=== PATIENT | male | born 1960 | race American Indian/Alaskan Native ===

== ENCOUNTER 2017-11-13 19:17 | Inpatient (IN) | payer MEDICAID ==
[~2017-11-13] VITALS: Ht 190.5 cm; Wt 188.6 kg
[~2017-11-13 19:17] MED LIST: ASPI-10 PO; CARV6.253 PO; FLO0.4C PO; FURO40TA4 PO; HYDR26CR RC; LACT10SO67 PO; LACT1CAP26 PO; MORP30TA60 PO; MUPI15CR12 TOP; NITR0.4T51 SL; PANT40TA4 PO; PER5325T PO; POTA10TA15 PO; RIFA550T PO; SUCR1TAB PO
[2017-11-13 19:58] LABS: BASOPHILS % (AUTO) 0.4 % (0-1); EOSINOPHILS # (AUTO) 0.3 X10'3 (0-0.9); EOSINOPHILS % (AUTO) 3.1 % (0-6); HEMATOCRIT 27.7 % (42.0-52.0); HEMOGLOBIN 9.2 g/dl (14.0-17.9); LYMPHOCYTES # (AUTO) 1.1 X10'3 (1.1-4.8); LYMPHOCYTES % (AUTO) 12.7 % (21-51); MEAN CORPUSCULAR HEMOGLOBIN 35.2 PG (27.0-31.0); MEAN CORPUSCULAR HGB CONC 33.3 % (33.0-36.5); MEAN CORPUSCULAR VOLUME 105.7 FL (78-98); MEAN PLATELET VOLUME 8.6 FL (7.4-10.4); MONOCYTES # (AUTO) 1.1 X10'3 (0-0.9); NEUTROPHILS # (AUTO) 5.9 X10'3 (1.8-7.7); NEUTROPHILS % (AUTO) 70.8 % (42-75); PLATELET COUNT 125 X10'3 (140-440); RED BLOOD COUNT 2.62 X10'6 (4.70-6.10); RED CELL DISTRIBUTION WIDTH 21.5 % (11.5-14.5); WHITE BLOOD COUNT 8.4 X10'3 (4.5-11.0)
[2017-11-13 20:05] LABS: INR 1.5 INR; PARTIAL THROMBOPLASTIN TIME 28 SECONDS (22-32); PROTHROMBIN TIME 15.2 SECONDS (9.0-12.0)
[2017-11-13 20:20] LABS: ACETAMINOPHEN < 2.0 UG/ML (10-30); ALANINE AMINOTRANSFERASE 21 U/L (12-78); ALBUMIN/GLOBULIN RATIO 0.4 (1.1-1.5); ALKALINE PHOSPHATASE 184 IU/L (46-116); ANION GAP 4 (8-16); ASPARTATE AMINO TRANSFERASE 59 U/L (10-37); BLOOD UREA NITROGEN 14 MG/DL (7-18); BUN/CREATININE RATIO 12.3 (5.4-32.0); CALCIUM 7.9 MG/DL (8.5-10.1); CHLORIDE 94 MMOL/L (99-107); CREATINE KINASE 108 U/L (39-308); CREATINE KINASE MB < 0.5 ng/ml (0.3-3.6); CREATININE 1.14 MG/DL (0.60-1.10); ETHANOL < 0.010 GM/DL (0.0-0.010); GLUCOSE 121 MG/DL (70-104); MAGNESIUM 1.8 MG/DL (1.5-2.4); MYOGLOBIN 211 ng/ml (16-96); PHOSPHORUS 1.8 MG/DL (2.3-4.5); SODIUM 135 MMOL/L (135-145); TOTAL CARBON DIOXIDE 36.7 MMOL/L (24-32); TOTAL PROTEIN 7.3 G/DL (6.4-8.2); eGFR 67 ML/MIN
[2017-11-13 20:24] LABS: POTASSIUM 2.1 MMOL/L (3.5-5.1)
[2017-11-13 20:32] LABS: LACTIC SEPSIS 5.8 MMOL/L (0.4-2.0)
[2017-11-13] MEDS ORDERED: vancomycin/NS 1 GM ADD-VANTAGE 250 ML IV ONE (20:40)
[2017-11-13] MEDS ORDERED: heparin 10,000 units/1 ML INJ IV ONE ×2 (20:40→20:50)
[2017-11-13] MEDS ORDERED: aspirin 81mg tab.chew PO ONE (20:40)
[2017-11-13] MEDS ORDERED: piperacillin/tazo 3.375gm/50ml 50 ML IV ONE (20:40)
[2017-11-13] MEDS ORDERED: potassium Cl 20 mEq SR tablet PO ONE (20:40)
[2017-11-13] MEDS ORDERED: normal saline 1000ML IV soln IV ONE (20:40)
[2017-11-13] MEDS ORDERED: temazepam 15mg capsule PO PRN (21:00)
[2017-11-13] MEDS: potassium 10mEq/100ml NS w/LIDOcaine (10mg/bag) IV SCH ×2 (21:29→23:24)
[2017-11-13] MEDS: magnesium 2GM in 50ml NS 50 ML IV ONE ×2 (21:29→22:24)
[2017-11-13] MEDS ORDERED: potassium Cl 20 mEq SR tablet PO PRN (21:35)
[2017-11-13] MEDS ORDERED: diphenhydrAMINE 25mg capsule PO PRN (21:35)
[2017-11-13] MEDS ORDERED: ondansetron/PF 4mg/2ml inj IV PRN (21:35)
[2017-11-13] MEDS ORDERED: acetaminophen 650mg rectal suppository RC PRN (21:35)
[2017-11-13] MEDS ORDERED: potassium Cl 40MEQ/NS 500ml 500 ML IV PRN ×2 (21:35)
[2017-11-13] MEDS ORDERED: metoclopramide 5 mg/ml inj IV PRN (21:35)
[2017-11-13] MEDS ORDERED: HYDROcodone/acetaminophen 5mg/325mg tablet PO PRN (21:35)
[2017-11-13] MEDS ORDERED: HYDROcodone/acetaminophen 10/325mg tab PO PRN (21:35)
[2017-11-13] MEDS ORDERED: morphine sulfate 8 MG/ML SYRINGE IV PRN ×2 (21:35)
[2017-11-13] MEDS ORDERED: mag hydrox/Alum hydrox/simeth 30ml oral suspension PO PRN (21:35)
[2017-11-13] MEDS ORDERED: magnesium hydroxide 30ml (MOM) UD suspension PO PRN (21:35)
[2017-11-13] MEDS ORDERED: HYDROmorphone 1 mg/ml syringe IV PRN ×2 (21:35)
[2017-11-13] MEDS ORDERED: acetaminophen 325mg tablet PO PRN ×2 (21:35)
[2017-11-13] MEDS ORDERED: diphenhydrAMINE 50 mg/ml inj IV PRN (21:35)
[2017-11-13] MEDS: rifaximin 550mg tablet PO SCH (22:00)
[2017-11-13 22:16] LABS: LIPASE 167 U/L (73-393)
[2017-11-13 22:45] LABS: CLARITY,URINE CLOUDY (Clear); COLOR,URINE YELLOW (Yellow); GLUCOSE, URINE NEGATIVE (Neg); KETONES,URINE NEGATIVE (Neg); LEUKOCYTE ESTERASE ,URINE NEGATIVE (Neg); NITRITES, URINE NEGATIVE (Neg); OCCULT BLOOD,URINE TRACE-INTACT (Neg); PROTEIN,URINE NEGATIVE (Neg); UROBILINOGEN,URINE 0.2 E.U/dL (0.2-1.0)
[2017-11-13 22:56] LABS: URINE AMPHETAMINE SCREEN NEGATIVE (Neg); URINE BARBITUATE SCREEN NEGATIVE (Neg); URINE BENZODIAZEPINES SCREEN NEGATIVE (Neg); URINE CANNABINOID SCREEN NEGATIVE (Neg); URINE COCAINE SCREEN NEGATIVE (Neg); URINE METHADONE SCREEN NEGATIVE (Neg); URINE OPIATE SCREEN POSITIVE (Neg); URINE PHENCYCLIDINE SCREEN NEGATIVE (Neg)
[2017-11-13 23:01] LABS: UA COLLECTION TYPE FOLEY CATH
[2017-11-13 23:03] LABS: BACTERIA,URINE NONE SEEN /HPF (Neg); MUCUS STRANDS FEW /LPF (Neg); SQUAMOUS EPITHELIAL CELL,UR FEW /LPF (FEW); WBC,URINE NONE SEEN /HPF (0-4)
[2017-11-13 23:15] VITALS: BP 114/52
[2017-11-13] MEDS: furosemide 10 MG/1 ML 10ml inj IV SCH (23:25)
[2017-11-13] MEDS: tamsulosin 0.4mg capsule PO SCH (23:25)
[2017-11-13] MEDS: carvedilol 6.25mg tablet PO SCH (23:25)
[2017-11-13] MEDS: pantoprazole 40mg Tablet.DR PO SCH (23:26)
[2017-11-13] MEDS: morphine ER 30mg tablet PO SCH (23:26)
[2017-11-14 02:41] LABS: ALANINE AMINOTRANSFERASE 20 U/L (12-78); ALBUMIN 1.8 G/DL (3.4-5.0); ALBUMIN/GLOBULIN RATIO 0.4 (1.1-1.5); ALKALINE PHOSPHATASE 158 IU/L (46-116); ANION GAP 3 (8-16); ASPARTATE AMINO TRANSFERASE 55 U/L (10-37); BILIRUBIN,TOTAL 6.9 MG/DL (0.1-1.0); BLOOD UREA NITROGEN 13 MG/DL (7-18); BUN/CREATININE RATIO 13.8 (5.4-32.0); CALCIUM 7.6 MG/DL (8.5-10.1); CHLORIDE 96 MMOL/L (99-107); CREATININE 0.94 MG/DL (0.60-1.10); GLUCOSE 126 MG/DL (70-104); SODIUM 138 MMOL/L (135-145); TOTAL CARBON DIOXIDE 39.3 MMOL/L (24-32); TOTAL PROTEIN 6.6 G/DL (6.4-8.2); eGFR 84 ML/MIN
[2017-11-14 02:42] LABS: POTASSIUM 2.1 MMOL/L (3.5-5.1)
[2017-11-14 02:53] LABS: BASOPHILS % (AUTO) 0.2 % (0-1); EOSINOPHILS # (AUTO) 0.2 X10'3 (0-0.9); HEMATOCRIT 25.2 % (42.0-52.0); HEMOGLOBIN 8.6 g/dl (14.0-17.9); LYMPHOCYTES % (AUTO) 12.4 % (21-51); MEAN CORPUSCULAR HGB CONC 34.3 % (33.0-36.5); MEAN CORPUSCULAR VOLUME 104.8 FL (78-98); MEAN PLATELET VOLUME 9.3 FL (7.4-10.4); MONOCYTES # (AUTO) 0.8 X10'3 (0-0.9); MONOCYTES % (AUTO) 10.7 % (2-12); NEUTROPHILS # (AUTO) 5.8 X10'3 (1.8-7.7); NEUTROPHILS % (AUTO) 74.7 % (42-75); PLATELET COUNT 108 X10'3 (140-440); RED CELL DISTRIBUTION WIDTH 21.5 % (11.5-14.5); WHITE BLOOD COUNT 7.8 X10'3 (4.5-11.0)
[2017-11-14 03:00] VITALS: BP 112/49
[2017-11-14] MEDS: potassium Cl 20 mEq SR tablet PO PRN ×5 (03:13→23:44)
[2017-11-14] MEDS: sucralfate 1 gm tablet PO SCH ×3 (07:00→17:00)
[2017-11-14] MEDS: lisinopril 5mg tablet PO SCH ×2 (08:00→10:58)
[2017-11-14] MEDS: metoprolol tartrate 25mg tablet PO SCH ×2 (08:00→10:58)
[2017-11-14] MEDS: K and/or MAG REPLACEMENT MC SCH (08:00)
[2017-11-14] MEDS ORDERED: lactulose 20gm/30ml cup PO SCH (08:00)
[2017-11-14] MEDS ORDERED: aspirin 325mg tablet PO SCH (08:30)
[2017-11-14] MEDS ORDERED: heparin 10,000 units/1 ML INJ IV ONE (08:35)
[2017-11-14 09:22] LABS: BASOPHILS % (AUTO) 0.3 % (0-1); EOSINOPHILS # (AUTO) 0.3 X10'3 (0-0.9); EOSINOPHILS % (AUTO) 3.3 % (0-6); HEMATOCRIT 26.3 % (42.0-52.0); HEMOGLOBIN 8.9 g/dl (14.0-17.9); LYMPHOCYTES # (AUTO) 1.1 X10'3 (1.1-4.8); LYMPHOCYTES % (AUTO) 13.6 % (21-51); MEAN CORPUSCULAR HEMOGLOBIN 35.4 PG (27.0-31.0); MEAN CORPUSCULAR HGB CONC 33.9 % (33.0-36.5); MEAN CORPUSCULAR VOLUME 104.6 FL (78-98); MEAN PLATELET VOLUME 8.3 FL (7.4-10.4); NEUTROPHILS # (AUTO) 5.8 X10'3 (1.8-7.7); NEUTROPHILS % (AUTO) 70.8 % (42-75); PLATELET COUNT 119 X10'3 (140-440); RED BLOOD COUNT 2.51 X10'6 (4.70-6.10); RED CELL DISTRIBUTION WIDTH 21.4 % (11.5-14.5); WHITE BLOOD COUNT 8.2 X10'3 (4.5-11.0)
[2017-11-14 09:26] LABS: INR 1.5 INR; PARTIAL THROMBOPLASTIN TIME 31 SECONDS (22-32); PROTHROMBIN TIME 15.7 SECONDS (9.0-12.0)
[2017-11-14] MEDS: lactulose 20gm/30ml cup PO SCH ×3 (10:57→19:26)
[2017-11-14] MEDS: pantoprazole 40mg Tablet.DR PO SCH ×2 (10:58→19:27)
[2017-11-14] MEDS: atorvastatin 10mg tablet PO SCH (10:58)
[2017-11-14] MEDS: rifaximin 550mg tablet PO SCH ×2 (10:58→19:27)
[2017-11-14] MEDS: docusate sod 100mg capsule PO SCH ×2 (10:58→19:27)
[2017-11-14] MEDS: carvedilol 6.25mg tablet PO SCH ×2 (10:59→19:27)
[2017-11-14] MEDS: morphine ER 30mg tablet PO SCH ×2 (10:59→19:27)
[2017-11-14 11:00] VITALS: BP_SYST 104; BP_SYST 126; BP_DIAS 48; BP_DIAS 66
[2017-11-14] MEDS: furosemide 10 MG/1 ML 10ml inj IV SCH (11:00)
[2017-11-14] MEDS ORDERED: chlorhexidine gluc 0.4% **topical ** 120ml btl. TP ONE (14:05)
[2017-11-14] MEDS ORDERED: silver sulfadiazine cream 400gm jar TP SCH (14:05)
[2017-11-14 18:45] LABS: TROPONIN I 8.52 NG/ML (0.0-0.05)
[2017-11-14 19:00] VITALS: BP 127/58
[2017-11-14 19:06] LABS: POTASSIUM 2.6 MMOL/L (3.5-5.1)
[2017-11-14] MEDS: heparin 10,000 units/1 ML INJ IV PRN (19:38)
[2017-11-14] MEDS ORDERED: nitroGLYCERIN 0.2mg/hour patch TD SCH (20:00)
[2017-11-14 23:00] VITALS: BP 123/58
[2017-11-14] MEDS: tamsulosin 0.4mg capsule PO SCH (23:44)
[2017-11-15] VITALS (7 sets, daily range): BP systolic 94–130; BP diastolic 40–60
[2017-11-15 02:12] LABS: BASOPHILS % (AUTO) 0.2 % (0-1); EOSINOPHILS # (AUTO) 0.3 X10'3 (0-0.9); EOSINOPHILS % (AUTO) 2.9 % (0-6); HEMATOCRIT 25.6 % (42.0-52.0); HEMOGLOBIN 8.6 g/dl (14.0-17.9); LYMPHOCYTES # (AUTO) 1.4 X10'3 (1.1-4.8); LYMPHOCYTES % (AUTO) 12.7 % (21-51); MEAN CORPUSCULAR HEMOGLOBIN 35.4 PG (27.0-31.0); MEAN CORPUSCULAR HGB CONC 33.5 % (33.0-36.5); MEAN CORPUSCULAR VOLUME 105.7 FL (78-98); MEAN PLATELET VOLUME 8.2 FL (7.4-10.4); MONOCYTES # (AUTO) 1.3 X10'3 (0-0.9); NEUTROPHILS % (AUTO) 72.2 % (42-75); PLATELET COUNT 128 X10'3 (140-440); RED BLOOD COUNT 2.42 X10'6 (4.70-6.10); RED CELL DISTRIBUTION WIDTH 21.4 % (11.5-14.5); WHITE BLOOD COUNT 11.1 X10'3 (4.5-11.0)
[2017-11-15] MEDS: lactulose 20gm/30ml cup PO SCH ×4 (02:15→19:37)
[2017-11-15 02:24] LABS: ALANINE AMINOTRANSFERASE 15 U/L (12-78); ALBUMIN 1.6 G/DL (3.4-5.0); ALBUMIN/GLOBULIN RATIO 0.3 (1.1-1.5); ALKALINE PHOSPHATASE 160 IU/L (46-116); ANION GAP 3 (8-16); ASPARTATE AMINO TRANSFERASE 78 U/L (10-37); BILIRUBIN,TOTAL 6.8 MG/DL (0.1-1.0); BLOOD UREA NITROGEN 19 MG/DL (7-18); BUN/CREATININE RATIO 13.1 (5.4-32.0); CALCIUM 7.4 MG/DL (8.5-10.1); CHLORIDE 97 MMOL/L (99-107); CREATININE 1.45 MG/DL (0.60-1.10); GLUCOSE 143 MG/DL (70-104); SODIUM 137 MMOL/L (135-145); TOTAL CARBON DIOXIDE 36.6 MMOL/L (24-32); TOTAL PROTEIN 6.5 G/DL (6.4-8.2); eGFR 51 ML/MIN
[2017-11-15 02:26] LABS: POTASSIUM 2.7 MMOL/L (3.5-5.1)
[2017-11-15] MEDS: heparin 10,000 units/1 ML INJ IV PRN ×3 (02:52→17:55)
[2017-11-15] MEDS: potassium Cl 20 mEq SR tablet PO PRN ×3 (03:49→14:20)
[2017-11-15] MEDS: lisinopril 5mg tablet PO SCH (07:33)
[2017-11-15] MEDS: morphine ER 30mg tablet PO SCH ×2 (07:33→19:36)
[2017-11-15] MEDS: rifaximin 550mg tablet PO SCH ×2 (07:33→20:41)
[2017-11-15] MEDS: pantoprazole 40mg Tablet.DR PO SCH ×2 (07:33→19:36)
[2017-11-15] MEDS: sucralfate 1 gm tablet PO SCH ×3 (07:33→17:09)
[2017-11-15] MEDS: docusate sod 100mg capsule PO SCH ×2 (07:33→19:36)
[2017-11-15] MEDS: atorvastatin 10mg tablet PO SCH (07:33)
[2017-11-15] MEDS: carvedilol 6.25mg tablet PO SCH ×2 (07:33→19:37)
[2017-11-15] MEDS: furosemide 10 MG/1 ML 10ml inj IV SCH (07:34)
[2017-11-15] MEDS: K and/or MAG REPLACEMENT MC SCH (07:45)
[2017-11-15] MEDS: silver sulfadiazine cream 50gm TP SCH (10:28)
[2017-11-15] MEDS: lactobacillus rhamnosus 10,000 MMU CELLS/CAPSULE PO SCH (17:09)
[2017-11-15 17:44] LABS: TROPONIN I 3.72 NG/ML (0.0-0.05)
[2017-11-15 19:24] LABS: POTASSIUM 3.3 MMOL/L (3.5-5.1)
[2017-11-15] MEDS: nitroGLYCERIN 0.2mg/hour patch TD SCH (20:00)
[2017-11-15] MEDS: tamsulosin 0.4mg capsule PO SCH (20:41)
[2017-11-16 03:00] VITALS: BP 108/46
[2017-11-16] MEDS: lactulose 20gm/30ml cup PO SCH ×4 (03:43→21:34)
[2017-11-16 05:47] LABS: BASOPHILS % (AUTO) 0.3 % (0-1); EOSINOPHILS # (AUTO) 0.4 X10'3 (0-0.9); EOSINOPHILS % (AUTO) 4.5 % (0-6); HEMATOCRIT 26.7 % (42.0-52.0); HEMOGLOBIN 8.9 g/dl (14.0-17.9); LYMPHOCYTES # (AUTO) 1.4 X10'3 (1.1-4.8); LYMPHOCYTES % (AUTO) 15.2 % (21-51); MEAN CORPUSCULAR HEMOGLOBIN 35.3 PG (27.0-31.0); MEAN CORPUSCULAR HGB CONC 33.3 % (33.0-36.5); MEAN PLATELET VOLUME 8.4 FL (7.4-10.4); MONOCYTES # (AUTO) 1.1 X10'3 (0-0.9); MONOCYTES % (AUTO) 11.5 % (2-12); NEUTROPHILS # (AUTO) 6.3 X10'3 (1.8-7.7); NEUTROPHILS % (AUTO) 68.5 % (42-75); PLATELET COUNT 129 X10'3 (140-440); RED BLOOD COUNT 2.52 X10'6 (4.70-6.10); RED CELL DISTRIBUTION WIDTH 22.6 % (11.5-14.5); WHITE BLOOD COUNT 9.2 X10'3 (4.5-11.0)
[2017-11-16 06:00] VITALS: BP 97/32
[2017-11-16 06:19] LABS: ALANINE AMINOTRANSFERASE 21 U/L (12-78); ALBUMIN 1.8 G/DL (3.4-5.0); ALBUMIN/GLOBULIN RATIO 0.4 (1.1-1.5); ALKALINE PHOSPHATASE 163 IU/L (46-116); ANION GAP 5 (8-16); ASPARTATE AMINO TRANSFERASE 78 U/L (10-37); BILIRUBIN,TOTAL 7.5 MG/DL (0.1-1.0); BLOOD UREA NITROGEN 21 MG/DL (7-18); BUN/CREATININE RATIO 18.6 (5.4-32.0); CALCIUM 7.9 MG/DL (8.5-10.1); CHLORIDE 95 MMOL/L (99-107); CREATININE 1.13 MG/DL (0.60-1.10); GLUCOSE 130 MG/DL (70-104); POTASSIUM 3.1 MMOL/L (3.5-5.1); SODIUM 136 MMOL/L (135-145); TOTAL CARBON DIOXIDE 36.2 MMOL/L (24-32); TOTAL PROTEIN 6.9 G/DL (6.4-8.2); eGFR 68 ML/MIN
[2017-11-16] MEDS: sucralfate 1 gm tablet PO SCH ×3 (06:35→17:07)
[2017-11-16] MEDS: lactobacillus rhamnosus 10,000 MMU CELLS/CAPSULE PO SCH ×2 (06:35→17:07)
[2017-11-16 06:56] LABS: TROPONIN I 2.45 NG/ML (0.0-0.05)
[2017-11-16] MEDS: silver sulfadiazine cream 50gm TP SCH (08:41)
[2017-11-16] MEDS: potassium Cl 20 mEq SR tablet PO PRN (08:41)
[2017-11-16] MEDS: rifaximin 550mg tablet PO SCH ×2 (08:41→21:37)
[2017-11-16] MEDS: pantoprazole 40mg Tablet.DR PO SCH ×2 (08:42→21:36)
[2017-11-16] MEDS: atorvastatin 10mg tablet PO SCH (08:42)
[2017-11-16] MEDS: lisinopril 5mg tablet PO SCH (08:42)
[2017-11-16] MEDS: morphine ER 30mg tablet PO SCH ×2 (08:43→21:36)
[2017-11-16] MEDS: docusate sod 100mg capsule PO SCH ×2 (08:43→20:00)
[2017-11-16] MEDS: carvedilol 6.25mg tablet PO SCH (08:43)
[2017-11-16] MEDS: furosemide 10 MG/1 ML 10ml inj IV SCH ×2 (08:44→16:49)
[2017-11-16] MEDS: K and/or MAG REPLACEMENT MC SCH (08:57)
[2017-11-16] MEDS ORDERED: insulin Lispro (HumaLOG) vial - multi-dose SQ SCH (09:45)
[2017-11-16] MEDS ORDERED: glucagon, human recombinant 1mg kit SUBCUT PRN (09:45)
[2017-11-16] MEDS ORDERED: dextrose ORAL solution 15 GM/59 ML bottle PO PRN ×2 (09:45)
[2017-11-16] MEDS ORDERED: dextrose 50%-water 50ml dispensing syringe IV PRN ×2 (09:45)
[2017-11-16] MEDS ORDERED: MESSAGE TO PHARMACY PO ONE (09:45)
[2017-11-16 11:00] VITALS: BP 102/45
[2017-11-16] MEDS: aspirin 325mg tablet, delayed-release (Ecotrin) PO SCH (12:21)
[2017-11-16] MEDS: potassium Cl 20 mEq SR tablet PO SCH ×2 (12:21→17:07)
[2017-11-16 15:00] VITALS: BP 105/46
[2017-11-16 19:00] VITALS: BP 117/51
[2017-11-16] MEDS: carVEDilol 3.125mg tablet PO SCH (20:00)
[2017-11-16] MEDS: nitroGLYCERIN 0.2mg/hour patch TD SCH (20:00)
[2017-11-16] MEDS ORDERED: Insulin Detemir pen SQ SCH (21:00)
[2017-11-16] MEDS: docusate sod 250mg capsule PO SCH (21:36)
[2017-11-16] MEDS: tamsulosin 0.4mg capsule PO SCH (21:37)
[2017-11-16] MEDS: heparin, porcine 5000 units/ml vial SQ SCH (21:42)
[2017-11-16 23:00] VITALS: BP 115/58
[2017-11-17] MEDS: furosemide 10 MG/1 ML 10ml inj IV SCH ×4 (00:33→23:38)
[2017-11-17] MEDS: lactulose 20gm/30ml cup PO SCH ×4 (02:00→20:25)
[2017-11-17 03:00] VITALS: BP 120/52
[2017-11-17 06:00] VITALS: BP 120/53
[2017-11-17] MEDS: K and/or MAG REPLACEMENT MC SCH (08:00)
[2017-11-17 08:14] LABS: ALBUMIN 1.9 G/DL (3.4-5.0); ANION GAP 4 (8-16); BLOOD UREA NITROGEN 19 MG/DL (7-18); BUN/CREATININE RATIO 17.9 (5.4-32.0); CALCIUM 7.8 MG/DL (8.5-10.1); CHLORIDE 95 MMOL/L (99-107); CREATININE 1.06 MG/DL (0.60-1.10); GLUCOSE 117 MG/DL (70-104); POTASSIUM 3.8 MMOL/L (3.5-5.1); SODIUM 133 MMOL/L (135-145); TOTAL CARBON DIOXIDE 34.3 MMOL/L (24-32); eGFR 73 ML/MIN
[2017-11-17] MEDS: morphine ER 30mg tablet PO SCH ×2 (09:59→20:26)
[2017-11-17] MEDS: carVEDilol 3.125mg tablet PO SCH ×2 (10:07→20:26)
[2017-11-17] MEDS: docusate sod 100mg capsule PO SCH ×2 (10:07→20:26)
[2017-11-17] MEDS: sucralfate 1 gm tablet PO SCH ×3 (10:07→17:46)
[2017-11-17] MEDS: rifaximin 550mg tablet PO SCH ×2 (10:07→20:29)
[2017-11-17] MEDS: potassium Cl 20 mEq SR tablet PO SCH ×2 (10:07→17:46)
[2017-11-17] MEDS: atorvastatin 10mg tablet PO SCH (10:07)
[2017-11-17] MEDS: lactobacillus rhamnosus 10,000 MMU CELLS/CAPSULE PO SCH ×2 (10:07→17:46)
[2017-11-17] MEDS: pantoprazole 40mg Tablet.DR PO SCH ×2 (10:07→20:26)
[2017-11-17] MEDS: aspirin 325mg tablet, delayed-release (Ecotrin) PO SCH (10:07)
[2017-11-17] MEDS: silver sulfadiazine cream 50gm TP SCH (10:08)
[2017-11-17] MEDS: heparin, porcine 5000 units/ml vial SQ SCH ×2 (10:08→20:26)
[2017-11-17 11:00] VITALS: BP 135/48
[2017-11-17 15:00] VITALS: BP 142/46
[2017-11-17 19:00] VITALS: BP 151/54
[2017-11-17] MEDS: nitroGLYCERIN 0.2mg/hour patch TD SCH (20:00)
[2017-11-17] MEDS: tamsulosin 0.4mg capsule PO SCH (20:26)
[2017-11-17] MEDS: docusate sod 250mg capsule PO SCH (20:26)
[2017-11-17 23:00] VITALS: BP 142/59
[2017-11-17 23:15] LABS: OCCULT BLOOD STOOL POSITIVE (Neg)
[2017-11-18] VITALS (7 sets, daily range): BP systolic 103–152; BP diastolic 30–67
[2017-11-18] MEDS: lactulose 20gm/30ml cup PO SCH ×4 (02:35→20:40)
[2017-11-18 03:42] LABS: BASOPHILS % (AUTO) 0.3 % (0-1); EOSINOPHILS # (AUTO) 0.4 X10'3 (0-0.9); EOSINOPHILS % (AUTO) 4.7 % (0-6); HEMATOCRIT 24.3 % (42.0-52.0); HEMOGLOBIN 8.3 g/dl (14.0-17.9); LYMPHOCYTES # (AUTO) 1.4 X10'3 (1.1-4.8); LYMPHOCYTES % (AUTO) 17.4 % (21-51); MEAN CORPUSCULAR HEMOGLOBIN 35.9 PG (27.0-31.0); MEAN CORPUSCULAR VOLUME 105.6 FL (78-98); MONOCYTES # (AUTO) 1.1 X10'3 (0-0.9); MONOCYTES % (AUTO) 13.7 % (2-12); NEUTROPHILS # (AUTO) 5.3 X10'3 (1.8-7.7); NEUTROPHILS % (AUTO) 63.9 % (42-75); PLATELET COUNT 147 X10'3 (140-440); RED CELL DISTRIBUTION WIDTH 22.9 % (11.5-14.5); WHITE BLOOD COUNT 8.2 X10'3 (4.5-11.0)
[2017-11-18 07:11] LABS: ALANINE AMINOTRANSFERASE 29 U/L (12-78); ALBUMIN 1.8 G/DL (3.4-5.0); ALKALINE PHOSPHATASE 177 IU/L (46-116); ANION GAP 5 (8-16); ASPARTATE AMINO TRANSFERASE 100 U/L (10-37); BILIRUBIN,TOTAL 7.3 MG/DL (0.1-1.0); BLOOD UREA NITROGEN 18 MG/DL (7-18); BUN/CREATININE RATIO 18.2 (5.4-32.0); CALCIUM 8.1 MG/DL (8.5-10.1); CHLORIDE 98 MMOL/L (99-107); CREATININE 0.99 MG/DL (0.60-1.10); GLUCOSE 111 MG/DL (70-104); HDL CHOLESTEROL 19 MG/DL (35-60); LDL CHOLESTEROL 84 MG/DL (50-100); POTASSIUM 4.2 MMOL/L (3.5-5.1); SODIUM 135 MMOL/L (135-145); TOTAL CARBON DIOXIDE 32.5 MMOL/L (24-32); TRIGLYCERIDES 58 MG/DL (20-135); eGFR 79 ML/MIN
[2017-11-18 07:35] LABS: ALBUMIN/GLOBULIN RATIO 0.4 (1.1-1.5); CHOL/HDL RATIO 5.4 (0.00-4.99); CHOLESTEROL 102 MG/DL (0-200); TOTAL PROTEIN 6.8 G/DL (6.4-8.2)
[2017-11-18] MEDS: nitroGLYCERIN 0.4mg SUBLingual tab SL PRN (07:58)
[2017-11-18] MEDS: docusate sod 100mg capsule PO SCH (08:00)
[2017-11-18] MEDS: K and/or MAG REPLACEMENT MC SCH (08:00)
[2017-11-18] MEDS: atorvastatin 10mg tablet PO SCH (08:17)
[2017-11-18] MEDS: morphine ER 30mg tablet PO SCH ×2 (08:17→20:39)
[2017-11-18] MEDS: rifaximin 550mg tablet PO SCH ×2 (08:17→20:39)
[2017-11-18] MEDS: aspirin 325mg tablet, delayed-release (Ecotrin) PO SCH (08:18)
[2017-11-18] MEDS: pantoprazole 40mg Tablet.DR PO SCH (08:18)
[2017-11-18] MEDS: carVEDilol 3.125mg tablet PO SCH ×2 (08:18→20:39)
[2017-11-18] MEDS: potassium Cl 20 mEq SR tablet PO SCH ×2 (08:18→16:30)
[2017-11-18] MEDS: sucralfate 1 gm tablet PO SCH ×3 (08:18→16:01)
[2017-11-18] MEDS: lactobacillus rhamnosus 10,000 MMU CELLS/CAPSULE PO SCH ×2 (08:18→16:01)
[2017-11-18] MEDS: furosemide 10 MG/1 ML 10ml inj IV SCH ×3 (08:19→23:29)
[2017-11-18] MEDS: silver sulfadiazine cream 50gm TP SCH (08:24)
[2017-11-18] MEDS: heparin, porcine 5000 units/ml vial SQ SCH ×2 (11:58→20:40)
[2017-11-18] MEDS: pantoprazole 40MG/NS 100ML BAG 100 ML IV SCH ×2 (16:02→20:40)
[2017-11-18] MEDS: nitroGLYCERIN 0.2mg/hour patch TD SCH (20:00)
[2017-11-18] MEDS: tamsulosin 0.4mg capsule PO SCH (20:39)
[2017-11-18] MEDS: docusate sod 250mg capsule PO SCH (20:39)
[2017-11-19] MEDS: pantoprazole 40MG/NS 100ML BAG 100 ML IV SCH ×5 (02:19→22:14)
[2017-11-19] MEDS: lactulose 20gm/30ml cup PO SCH ×4 (02:19→20:24)
[2017-11-19 03:00] VITALS: BP 124/48
[2017-11-19 05:19] LABS: BASOPHILS % (AUTO) 0.3 % (0-1); EOSINOPHILS # (AUTO) 0.4 X10'3 (0-0.9); HEMATOCRIT 24.3 % (42.0-52.0); HEMOGLOBIN 8.1 g/dl (14.0-17.9); LYMPHOCYTES # (AUTO) 1.9 X10'3 (1.1-4.8); LYMPHOCYTES % (AUTO) 17.9 % (21-51); MEAN CORPUSCULAR HEMOGLOBIN 35.7 PG (27.0-31.0); MEAN CORPUSCULAR HGB CONC 33.5 % (33.0-36.5); MEAN CORPUSCULAR VOLUME 106.4 FL (78-98); MEAN PLATELET VOLUME 7.9 FL (7.4-10.4); MONOCYTES # (AUTO) 1.5 X10'3 (0-0.9); MONOCYTES % (AUTO) 14.5 % (2-12); NEUTROPHILS # (AUTO) 6.6 X10'3 (1.8-7.7); NEUTROPHILS % (AUTO) 63.3 % (42-75); PLATELET COUNT 126 X10'3 (140-440); RED BLOOD COUNT 2.28 X10'6 (4.70-6.10); RED CELL DISTRIBUTION WIDTH 22.5 % (11.5-14.5); WHITE BLOOD COUNT 10.4 X10'3 (4.5-11.0)
[2017-11-19 05:55] LABS: ALANINE AMINOTRANSFERASE 30 U/L (12-78); ALBUMIN 1.7 G/DL (3.4-5.0); ALBUMIN/GLOBULIN RATIO 0.3 (1.1-1.5); ALKALINE PHOSPHATASE 175 IU/L (46-116); ANION GAP 4 (8-16); ASPARTATE AMINO TRANSFERASE 88 U/L (10-37); BILIRUBIN,TOTAL 6.6 MG/DL (0.1-1.0); BLOOD UREA NITROGEN 13 MG/DL (7-18); BUN/CREATININE RATIO 13.4 (5.4-32.0); CALCIUM 7.8 MG/DL (8.5-10.1); CHLORIDE 99 MMOL/L (99-107); CREATININE 0.97 MG/DL (0.60-1.10); GLUCOSE 127 MG/DL (70-104); POTASSIUM 3.7 MMOL/L (3.5-5.1); SODIUM 135 MMOL/L (135-145); TOTAL CARBON DIOXIDE 32.1 MMOL/L (24-32); TOTAL PROTEIN 6.8 G/DL (6.4-8.2); eGFR 81 ML/MIN
[2017-11-19] MEDS: sucralfate 1 gm tablet PO SCH ×3 (07:05→17:02)
[2017-11-19] MEDS: lactobacillus rhamnosus 10,000 MMU CELLS/CAPSULE PO SCH ×2 (07:05→17:02)
[2017-11-19] MEDS: K and/or MAG REPLACEMENT MC SCH (08:00)
[2017-11-19] MEDS: furosemide 10 MG/1 ML 10ml inj IV SCH ×3 (08:24→20:24)
[2017-11-19] MEDS: carVEDilol 3.125mg tablet PO SCH ×2 (08:32→20:26)
[2017-11-19] MEDS: morphine ER 30mg tablet PO SCH ×2 (08:33→20:24)
[2017-11-19] MEDS: aspirin 325mg tablet, delayed-release (Ecotrin) PO SCH (08:33)
[2017-11-19] MEDS: atorvastatin 10mg tablet PO SCH (08:33)
[2017-11-19] MEDS: rifaximin 550mg tablet PO SCH ×2 (08:34→20:25)
[2017-11-19] MEDS: heparin, porcine 5000 units/ml vial SQ SCH ×2 (08:35→20:24)
[2017-11-19] MEDS: potassium Cl 20 mEq SR tablet PO SCH ×3 (08:37→20:25)
[2017-11-19] MEDS: silver sulfadiazine cream 50gm TP SCH (08:37)
[2017-11-19] MEDS: nitroGLYCERIN 0.4mg SUBLingual tab SL PRN ×3 (09:00→18:50)
[2017-11-19 11:00] VITALS: BP 103/39
[2017-11-19 14:05] VITALS: BP 122/40
[2017-11-19 15:00] VITALS: BP 127/49
[2017-11-19 19:00] VITALS: BP 117/50
[2017-11-19] MEDS: nitroGLYCERIN 0.2mg/hour patch TD SCH (20:00)
[2017-11-19] MEDS: tamsulosin 0.4mg capsule PO SCH (20:25)
[2017-11-19] MEDS: docusate sod 250mg capsule PO SCH (20:25)
[2017-11-19 23:00] VITALS: BP 116/56
[2017-11-20] VITALS (8 sets, daily range): BP systolic 102–114; BP diastolic 35–53
[2017-11-20] MEDS: lactulose 20gm/30ml cup PO SCH ×4 (01:33→20:06)
[2017-11-20] MEDS: furosemide 10 MG/1 ML 10ml inj IV SCH ×4 (01:33→20:06)
[2017-11-20] MEDS: pantoprazole 40MG/NS 100ML BAG 100 ML IV SCH ×6 (03:21→23:22)
[2017-11-20] MEDS: nitroGLYCERIN 0.4mg SUBLingual tab SL PRN ×4 (05:21→19:51)
[2017-11-20 05:31] LABS: BASOPHILS # (AUTO) 0.1 X10'3 (0-0.2); BASOPHILS % (AUTO) 0.6 % (0-1); EOSINOPHILS # (AUTO) 0.4 X10'3 (0-0.9); EOSINOPHILS % (AUTO) 4.4 % (0-6); HEMATOCRIT 23.6 % (42.0-52.0); HEMOGLOBIN 7.9 g/dl (14.0-17.9); LYMPHOCYTES # (AUTO) 1.9 X10'3 (1.1-4.8); LYMPHOCYTES % (AUTO) 18.9 % (21-51); MEAN CORPUSCULAR HEMOGLOBIN 35.9 PG (27.0-31.0); MEAN CORPUSCULAR HGB CONC 33.6 % (33.0-36.5); MEAN CORPUSCULAR VOLUME 106.9 FL (78-98); MEAN PLATELET VOLUME 8.3 FL (7.4-10.4); MONOCYTES # (AUTO) 1.2 X10'3 (0-0.9); MONOCYTES % (AUTO) 12.4 % (2-12); NEUTROPHILS # (AUTO) 6.3 X10'3 (1.8-7.7); NEUTROPHILS % (AUTO) 63.7 % (42-75); PLATELET COUNT 134 X10'3 (140-440); RED BLOOD COUNT 2.21 X10'6 (4.70-6.10); RED CELL DISTRIBUTION WIDTH 22.4 % (11.5-14.5); WHITE BLOOD COUNT 9.9 X10'3 (4.5-11.0)
[2017-11-20 06:24] LABS: ALANINE AMINOTRANSFERASE 29 U/L (12-78); ALBUMIN 1.6 G/DL (3.4-5.0); ALBUMIN/GLOBULIN RATIO 0.3 (1.1-1.5); ALKALINE PHOSPHATASE 179 IU/L (46-116); ANION GAP 3 (8-16); ASPARTATE AMINO TRANSFERASE 89 U/L (10-37); BILIRUBIN,TOTAL 5.9 MG/DL (0.1-1.0); BLOOD UREA NITROGEN 12 MG/DL (7-18); BUN/CREATININE RATIO 11.8 (5.4-32.0); CALCIUM 7.9 MG/DL (8.5-10.1); CHLORIDE 99 MMOL/L (99-107); CREATININE 1.02 MG/DL (0.60-1.10); GLUCOSE 154 MG/DL (70-104); POTASSIUM 3.9 MMOL/L (3.5-5.1); SODIUM 132 MMOL/L (135-145); TOTAL CARBON DIOXIDE 29.8 MMOL/L (24-32); TOTAL PROTEIN 6.7 G/DL (6.4-8.2); eGFR 76 ML/MIN
[2017-11-20] MEDS: lactobacillus rhamnosus 10,000 MMU CELLS/CAPSULE PO SCH ×2 (07:10→17:28)
[2017-11-20] MEDS: sucralfate 1 gm tablet PO SCH ×3 (07:10→17:28)
[2017-11-20] MEDS: K and/or MAG REPLACEMENT MC SCH (08:00)
[2017-11-20] MEDS: aspirin 325mg tablet, delayed-release (Ecotrin) PO SCH (08:06)
[2017-11-20] MEDS: carVEDilol 3.125mg tablet PO SCH ×2 (08:06→20:05)
[2017-11-20] MEDS: potassium Cl 20 mEq SR tablet PO SCH ×3 (08:06→20:06)
[2017-11-20] MEDS: atorvastatin 10mg tablet PO SCH (08:07)
[2017-11-20] MEDS: morphine ER 30mg tablet PO SCH ×2 (08:07→20:05)
[2017-11-20] MEDS: heparin, porcine 5000 units/ml vial SQ SCH ×2 (08:08→20:07)
[2017-11-20] MEDS: rifaximin 550mg tablet PO SCH ×2 (08:08→20:05)
[2017-11-20] MEDS: silver sulfadiazine cream 50gm TP SCH (08:09)
[2017-11-20] MEDS ORDERED: oxyCODONE/APAP 5-325mg tablet PO PRN (11:30)
[2017-11-20] MEDS: nitroGLYCERIN 0.4mg/hour patch TD SCH (15:44)
[2017-11-20] MEDS: docusate sod 250mg capsule PO SCH (20:06)
[2017-11-20] MEDS: tamsulosin 0.4mg capsule PO SCH (20:06)
[2017-11-21] VITALS (9 sets, daily range): BP systolic 94–141; BP diastolic 39–64
[2017-11-21] MEDS: nitroGLYCERIN 0.4mg SUBLingual tab SL PRN (02:22)
[2017-11-21] MEDS: furosemide 10 MG/1 ML 10ml inj IV SCH ×2 (02:23→07:30)
[2017-11-21] MEDS: lactulose 20gm/30ml cup PO SCH ×4 (02:24→20:26)
[2017-11-21] MEDS: pantoprazole 40MG/NS 100ML BAG 100 ML IV SCH ×2 (04:29→10:05)
[2017-11-21] MEDS: sucralfate 1 gm tablet PO SCH ×3 (07:18→17:17)
[2017-11-21] MEDS: K and/or MAG REPLACEMENT MC SCH (07:19)
[2017-11-21] MEDS: atorvastatin 10mg tablet PO SCH (07:30)
[2017-11-21] MEDS: morphine ER 30mg tablet PO SCH ×2 (07:31→20:27)
[2017-11-21] MEDS: potassium Cl 20 mEq SR tablet PO SCH ×3 (07:31→20:27)
[2017-11-21] MEDS: rifaximin 550mg tablet PO SCH ×2 (07:31→20:27)
[2017-11-21] MEDS: heparin, porcine 5000 units/ml vial SQ SCH ×2 (07:31→20:25)
[2017-11-21] MEDS: carVEDilol 3.125mg tablet PO SCH ×2 (07:33→20:27)
[2017-11-21] MEDS: lactobacillus rhamnosus 10,000 MMU CELLS/CAPSULE PO SCH ×2 (07:33→17:16)
[2017-11-21] MEDS: aspirin 81mg tablet.DR PO SCH (07:56)
[2017-11-21] MEDS: nitroGLYCERIN 0.4mg/hour patch TD SCH (07:56)
[2017-11-21] MEDS: silver sulfadiazine cream 50gm TP SCH (07:57)
[2017-11-21] MEDS ORDERED: acetaminophen 325mg tablet PO ONE (09:40)
[2017-11-21] MEDS ORDERED: diphenhydrAMINE 25mg capsule PO ONE (09:40)
[2017-11-21] MEDS ORDERED: furosemide 40mg/4ml inj IV ONE (11:40)
[2017-11-21] MEDS: pantoprazole 40 MG vial IV SCH (20:26)
[2017-11-21] MEDS: docusate sod 250mg capsule PO SCH (20:27)
[2017-11-21] MEDS: tamsulosin 0.4mg capsule PO SCH (20:27)
[2017-11-22] VITALS (10 sets, daily range): BP systolic 91–143; BP diastolic 35–71
[2017-11-22] MEDS: lactulose 20gm/30ml cup PO SCH ×2 (03:03→08:00)
[2017-11-22 04:19] LABS: BASOPHILS % (AUTO) 0.4 % (0-1); EOSINOPHILS # (AUTO) 0.4 X10'3 (0-0.9); EOSINOPHILS % (AUTO) 4.9 % (0-6); HEMATOCRIT 22.8 % (42.0-52.0); HEMOGLOBIN 7.7 g/dl (14.0-17.9); LYMPHOCYTES # (AUTO) 1.4 X10'3 (1.1-4.8); LYMPHOCYTES % (AUTO) 15.6 % (21-51); MEAN CORPUSCULAR HEMOGLOBIN 35.3 PG (27.0-31.0); MEAN CORPUSCULAR HGB CONC 33.6 % (33.0-36.5); MEAN CORPUSCULAR VOLUME 105.3 FL (78-98); MEAN PLATELET VOLUME 7.9 FL (7.4-10.4); MONOCYTES # (AUTO) 1.2 X10'3 (0-0.9); MONOCYTES % (AUTO) 13.9 % (2-12); NEUTROPHILS # (AUTO) 5.8 X10'3 (1.8-7.7); NEUTROPHILS % (AUTO) 65.2 % (42-75); PLATELET COUNT 121 X10'3 (140-440); RED BLOOD COUNT 2.17 X10'6 (4.70-6.10); RED CELL DISTRIBUTION WIDTH 26.7 % (11.5-14.5); WHITE BLOOD COUNT 8.9 X10'3 (4.5-11.0)
[2017-11-22 04:45] LABS: ALANINE AMINOTRANSFERASE 39 U/L (12-78); ALBUMIN 1.6 G/DL (3.4-5.0); ALBUMIN/GLOBULIN RATIO 0.3 (1.1-1.5); ALKALINE PHOSPHATASE 225 IU/L (46-116); ANION GAP 4 (8-16); ASPARTATE AMINO TRANSFERASE 89 U/L (10-37); BILIRUBIN,TOTAL 5.2 MG/DL (0.1-1.0); BLOOD UREA NITROGEN 11 MG/DL (7-18); BUN/CREATININE RATIO 11.7 (5.4-32.0); CALCIUM 7.8 MG/DL (8.5-10.1); CHLORIDE 102 MMOL/L (99-107); CREATININE 0.94 MG/DL (0.60-1.10); GLUCOSE 110 MG/DL (70-104); POTASSIUM 4.6 MMOL/L (3.5-5.1); SODIUM 136 MMOL/L (135-145); TOTAL CARBON DIOXIDE 30.3 MMOL/L (24-32); TOTAL PROTEIN 6.7 G/DL (6.4-8.2); eGFR 84 ML/MIN
[2017-11-22 04:59] LABS: POLYCHROMASIA FEW
[2017-11-22 05:00] LABS: ANISOCYTOSIS 3+; MICROCYTOSIS 1+; PLATELET ESTIMATE DECREASED; SCHISTOCYTES FEW
[2017-11-22] MEDS: sucralfate 1 gm tablet PO SCH ×3 (07:44→16:52)
[2017-11-22] MEDS: lactobacillus rhamnosus 10,000 MMU CELLS/CAPSULE PO SCH ×2 (07:44→16:52)
[2017-11-22] MEDS: K and/or MAG REPLACEMENT MC SCH (08:00)
[2017-11-22] MEDS: pantoprazole 40 MG vial IV SCH ×2 (09:25→19:58)
[2017-11-22] MEDS: aspirin 81mg tablet.DR PO SCH (09:26)
[2017-11-22] MEDS: atorvastatin 10mg tablet PO SCH (09:26)
[2017-11-22] MEDS: potassium Cl 20 mEq SR tablet PO SCH ×3 (09:27→20:07)
[2017-11-22] MEDS: carVEDilol 3.125mg tablet PO SCH ×2 (09:27→19:58)
[2017-11-22] MEDS: morphine ER 30mg tablet PO SCH ×2 (09:28→19:58)
[2017-11-22] MEDS: rifaximin 550mg tablet PO SCH ×2 (09:28→19:59)
[2017-11-22] MEDS: nitroGLYCERIN 0.4mg/hour patch TD SCH (09:43)
[2017-11-22] MEDS: silver sulfadiazine cream 50gm TP SCH (09:44)
[2017-11-22 10:37] LABS: BASOPHILS % (AUTO) 0.5 % (0-1); EOSINOPHILS # (AUTO) 0.4 X10'3 (0-0.9); EOSINOPHILS % (AUTO) 4.8 % (0-6); HEMATOCRIT 24.2 % (42.0-52.0); LYMPHOCYTES # (AUTO) 1.3 X10'3 (1.1-4.8); MEAN CORPUSCULAR HEMOGLOBIN 34.9 PG (27.0-31.0); MEAN CORPUSCULAR HGB CONC 33.1 % (33.0-36.5); MEAN CORPUSCULAR VOLUME 105.4 FL (78-98); MEAN PLATELET VOLUME 7.9 FL (7.4-10.4); MONOCYTES # (AUTO) 1.1 X10'3 (0-0.9); MONOCYTES % (AUTO) 12.7 % (2-12); NEUTROPHILS # (AUTO) 5.7 X10'3 (1.8-7.7); PLATELET COUNT 126 X10'3 (140-440); RED CELL DISTRIBUTION WIDTH 26.4 % (11.5-14.5); WHITE BLOOD COUNT 8.5 X10'3 (4.5-11.0)
[2017-11-22] MEDS: docusate sod 250mg capsule PO SCH (20:07)
[2017-11-22] MEDS: tamsulosin 0.4mg capsule PO SCH (20:07)
[2017-11-23 00:31] LABS: HEMATOCRIT 23.9 % (42.0-52.0); MEAN CORPUSCULAR HEMOGLOBIN 34.4 PG (27.0-31.0); MEAN CORPUSCULAR HGB CONC 33.4 % (33.0-36.5); MEAN CORPUSCULAR VOLUME 103.1 FL (78-98); MEAN PLATELET VOLUME 7.6 FL (7.4-10.4); PLATELET COUNT 124 X10'3 (140-440); RED BLOOD COUNT 2.32 X10'6 (4.70-6.10); RED CELL DISTRIBUTION WIDTH 27.9 % (11.5-14.5); WHITE BLOOD COUNT 9.9 X10'3 (4.5-11.0)
[2017-11-23 00:49] LABS: ALANINE AMINOTRANSFERASE 35 U/L (12-78); ALBUMIN 1.6 G/DL (3.4-5.0); ALBUMIN/GLOBULIN RATIO 0.3 (1.1-1.5); ALKALINE PHOSPHATASE 180 IU/L (46-116); ANION GAP 3 (8-16); ASPARTATE AMINO TRANSFERASE 83 U/L (10-37); BILIRUBIN,TOTAL 6.1 MG/DL (0.1-1.0); BLOOD UREA NITROGEN 12 MG/DL (7-18); CALCIUM 7.6 MG/DL (8.5-10.1); CHLORIDE 100 MMOL/L (99-107); GLUCOSE 110 MG/DL (70-104); POTASSIUM 4.8 MMOL/L (3.5-5.1); SODIUM 132 MMOL/L (135-145); TOTAL CARBON DIOXIDE 29.1 MMOL/L (24-32); TOTAL PROTEIN 6.6 G/DL (6.4-8.2); eGFR > 90 ML/MIN
[2017-11-23 03:00] VITALS: BP 104/44
[2017-11-23 06:00] VITALS: BP 101/42
[2017-11-23] MEDS: potassium Cl 20 mEq SR tablet PO SCH ×2 (07:49→12:22)
[2017-11-23] MEDS: rifaximin 550mg tablet PO SCH (07:50)
[2017-11-23] MEDS: atorvastatin 10mg tablet PO SCH (07:50)
[2017-11-23] MEDS: aspirin 81mg tablet.DR PO SCH (07:50)
[2017-11-23] MEDS: lactobacillus rhamnosus 10,000 MMU CELLS/CAPSULE PO SCH (07:50)
[2017-11-23] MEDS: morphine ER 30mg tablet PO SCH (07:50)
[2017-11-23] MEDS: lactulose 20gm/30ml cup PO SCH ×3 (07:50→08:00)
[2017-11-23] MEDS: sucralfate 1 gm tablet PO SCH ×2 (07:50→12:22)
[2017-11-23] MEDS: pantoprazole 40 MG vial IV SCH (07:51)
[2017-11-23] MEDS: K and/or MAG REPLACEMENT MC SCH (08:00)
[2017-11-23] MEDS: silver sulfadiazine cream 50gm TP SCH (08:00)
[2017-11-23] MEDS: nitroGLYCERIN 0.4mg/hour patch TD SCH ×2 (08:00→13:20)
[2017-11-23] MEDS: carVEDilol 3.125mg tablet PO SCH (08:00)
[2017-11-23 11:00] VITALS: BP 118/48
[2017-11-23] MEDS ORDERED: FURO20TA4 PO (11:38)
[2017-11-23] MEDS ORDERED: pantoprazole 40mg Tablet.DR PO SCH (20:00)
== END 2017-11-23 16:00 | disposition home health service (06) | DRG 190 ==
LOC: ER 19:18 → ED HOLD 21:34 → EDBEDREQ 22:02 → PCU 3S 23:00
PROVIDERS: ADMIT Family Medicine; ATTEND Internal Medicine
PROC: 30233N1 Transfusion of Nonautologous Red Blood Cells into Peripheral Vein, Percutaneous Approach (ICD-10-PCS; principal; 2017-11-21)
DX: I21.4 Non-ST elevation (NSTEMI) myocardial infarction (principal); E87.2 Acidosis; D68.4 Acquired coagulation factor deficiency; I13.0 Hypertensive heart and chronic kidney disease with heart failure and stage 1 through stage 4 chronic kidney disease, or unspecified chronic kidney disease; I50.9 Heart failure, unspecified; K26.9 Duodenal ulcer, unspecified as acute or chronic, without hemorrhage or perforation; E11.22 Type 2 diabetes mellitus with diabetic chronic kidney disease; I25.10 Atherosclerotic heart disease of native coronary artery without angina pectoris; E11.42 Type 2 diabetes mellitus with diabetic polyneuropathy; D69.6 Thrombocytopenia, unspecified; E83.51 Hypocalcemia; E66.01 Morbid (severe) obesity due to excess calories; E11.65 Type 2 diabetes mellitus with hyperglycemia; K72.90 Hepatic failure, unspecified without coma; K29.70 Gastritis, unspecified, without bleeding; F17.210 Nicotine dependence, cigarettes, uncomplicated; E87.6 Hypokalemia; B19.20 Unspecified viral hepatitis C without hepatic coma; D64.9 Anemia, unspecified; E78.00 Pure hypercholesterolemia, unspecified; E78.5 Hyperlipidemia, unspecified; I89.0 Lymphedema, not elsewhere classified; K74.60 Unspecified cirrhosis of liver; L98.9 Disorder of the skin and subcutaneous tissue, unspecified; N18.9 Chronic kidney disease, unspecified; Z82.0 Family history of epilepsy and other diseases of the nervous system; Z82.49 Family history of ischemic heart disease and other diseases of the circulatory system; I25.2 Old myocardial infarction; Z83.3 Family history of diabetes mellitus; Z86.73 Personal history of transient ischemic attack (TIA), and cerebral infarction without residual deficits; Z91.19 Patient's noncompliance with other medical treatment and regimen; Z95.5 Presence of coronary angioplasty implant and graft; Z68.43 Body mass index [BMI] 50.0-59.9, adult; Z95.1 Presence of aortocoronary bypass graft; Z79.899 Other long term (current) drug therapy; Z79.82 Long term (current) use of aspirin
CPT/HCPCS: 36415; 70450; 71010; 80048; 80053; 80061; 80305; 80320; 80329; 81001; 82140; 82272; 82550; 82553; 82948; 83036; 83605; 83690; 83735; 83874; 83880; 84100; 84132; 84439; 84443; 84484; 85025; 85027; 85610; 85730; 86885; 86900; 86901; 86920; 87040; 87070; 93005; 93308; 93971; 96374; 97116; 97161; 97530; 99291; A4315; A4649; A6212; A6213; A6223; A6257; A6258; A6446; A6449; C9113; J1644; J1940; J2270; J2543; J3370; J3475; J3480; J7030; P9016; Q0163